=== PATIENT | male | born 1985 | race Caucasian/White ===

== ENCOUNTER 2018-03-19 08:45 | Inpatient (IN) | payer OTHER ==
[~2018-03-19] VITALS: Ht 172.7 cm; Wt 154.2 kg
--- NOTE | 2018-03-19 11:00 | RADIOLOGY REPORT ---
EXAMINATION: XR CHEST CLINICAL INFORMATION: Cough COMPARISON: None TECHNIQUE: 2 views of the chest were obtained. FINDINGS: Cardiac silhouette is within normal limits. Mild prominence of the pulmonary and bronchial markings may represent reactive small airway disease or superimposed bronchiolitis. No acute airspace disease. Bony thorax is intact. IMPRESSION: Reactive small airway disease or superimposed bronchiolitis. No evidence of pneumonia.
--- NOTE | 2018-03-19 11:14 | ED DYSPNEA/ASTHMA COMPLAINT ---
See Addendum History of Present Illness General Chief Complaint: General Adult Stated Complaint: SOB COUGH SINCE THURSDAY 02 SAT 93 Source: patient Exam Limitations: no limitations Vital Signs & Intake/Output Vital Signs & Intake/Output Vital Signs Date Time Temp Pulse Resp B/P B/P Pulse O2 O2 Flow FiO2 Mean Ox Delivery Rate 03/19 1455 97.6 77 24 108/60 91 Room Air 03/19 1316 93 03/19 1206 98.8 88 21 158/78 93 Room Air 03/19 1140 93 03/19 1130 93 Room Air Room Air 03/19 1125 93 03/19 0851 98.6 81 20 163/78 91 Room Air Allergies Coded Allergies: No Known Allergies (03/19/18) Reconcile Medications No Known Home Medications Triage Note: 32 YO MALE TO TRIAGE C/O COUGH AND DIFF BREATHING SINCE THURSDAY. RA SATS 91-93%. PT STATES COUGH IS NONPRODUCTIVE. AFEBRILE. Triage Nurses Notes Reviewed? yes Onset: Abrupt Duration: minute(s): (4), day(s):, getting worse, intermittent Timing: recent history HPI: 32-year-old male comes into the emergency room complaints of shortness of breath cough wheezing. Symptoms going on for the past 4 days getting progressively worse. He's had some upper story symptoms. Comes in for further evaluation. He has some dizziness lightheadedness and some chest tightness. (Jose Spencer) Past History Travel History Traveled to [place] past 21 day No Medical History Any Pertinent Medical History? 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 No (Jose Spencer) Review of Systems Review of Systems Constitutional: Reports: see HPI. EENTM: Reports: no symptoms. Respiratory: Reports: see HPI. Cardiovascular: Reports: see HPI. GI: Reports: no symptoms. Genitourinary: Reports: no symptoms. Musculoskeletal: Reports: no symptoms. Skin: Reports: no symptoms. Neurological/Psychological: Reports: no symptoms. Hematologic/Endocrine: Reports: no symptoms. Immunologic/Allergic: Reports: no symptoms. All Other Systems: Reviewed and Negative (Jose Spencer) Physical Exam Physical Exam General Appearance: well developed/nourished, alert, awake, mild distress Head: atraumatic Eyes: Bilateral: normal appearance. Ears, Nose, Throat: normal ENT inspection, hearing grossly normal Neck: normal inspection Respiratory: decreased breath sounds, wheezing Cardiovascular: regular rate/rhythm Extremities: normal inspection Neurologic/Psych: awake, alert, oriented x 3, normal gait Skin: intact, normal color Core Measures ACS in differential dx? No CVA/TIA Diagnosis No Sepsis Present: No Sepsis Focused Exam Completed? No (Jose Spencer) Progress Differential Diagnosis: asthma, bronchitis, musculoskeletal pain, pericarditis, pulmonary embolism, pneumonia Plan of Care: Orders Procedure Date/time Status TROPONIN LEVEL 03/19 1300 Complete COMPREHENSIVE METABOLIC PANEL 03/19 1300 Complete CBC WITHOUT DIFFERENTIAL 03/19 1300 Complete EKG 03/19 1300 Active Current Medications Sig/Raciel Start time Last Medication Dose Stop Time Status Admin Magnesium Sulfate 1 GM Q2H 03/19 1300 AC 03/19 (Mag Sulfate in D5) 03/19 1659 1420 Dextrose/Water 100 ML (D5W) Laboratory Tests 03/19/18 1325: Anion Gap 12, Estimated GFR > 60, BUN/Creatinine Ratio 14.3, Glucose 96, Calcium 9.2, Total Bilirubin 0.8, AST 28, ALT 46, Alkaline Phosphatase 79, Troponin I < 0.01, Total Protein 7.7, Albumin 4.5, Globulin 3.2, Albumin/Globulin Ratio 1.4, CBC w Diff NO MAN DIFF REQ, RBC 4.70, MCV 88.5, MCH 29.6, MCHC 33.5, RDW 13.1, MPV 8.2, Gran % 87.3 H, Lymphocytes % 7.0 L, Monocytes % 3.3, Eosinophils % 2.4, Basophils % 0, Absolute Granulocytes 10.8 H, Absolute Lymphocytes 0.9 L, Absolute Monocytes 0.4, Absolute Eosinophils 0.3, Absolute Basophils 0 Diagnostic Imaging: Viewed by Me: Radiology Read. Discussed w/RAD: Radiology Read. Radiology Impression: PATIENT: RAGHAV WOODRUFF PRESENT AGE: 32 PATIENT ACCOUNT NO: [id number] : 83 LOCATION: [facility] ORDERING PHYSICIAN: Jose WEBSTER SERVICE DATE: 03/19/18 EXAM TYPE: RAD - XRY-CHEST XRAY, TWO VIEWS EXAMINATION: XR CHEST CLINICAL INFORMATION: Cough COMPARISON: None TECHNIQUE: 2 views of the chest were obtained. FINDINGS: Cardiac silhouette is within normal limits. Mild prominence of the pulmonary and bronchial markings may represent reactive small airway disease or superimposed bronchiolitis. No acute airspace disease. Bony thorax is intact. IMPRESSION: Reactive small airway disease or superimposed bronchiolitis. No evidence of pneumonia. DICTATED BY: Mae Mayorga MD DATE/TIME DICTATED:03/19/181055 SECTION WEAVER:ARIANA DATE/TIME TRANSCRIBED:03/19/181055 CONFIDENTIAL, DO NOT COPY WITHOUT APPROPRIATE AUTHORIZATION. <Electronically signed in Other Vendor System> SIGNED BY: Mae Mayorga MD 03/19/18 1100 Initial ED EKG: normal sinus rhythm, rate (66) (Jose Spencer) Departure Departure Disposition: STILL A PATIENT Condition: Stable Clinical Impression Primary Impression: Asthma exacerbation Secondary Impressions: Hypoxia Referrals: Cb LUU,Khris Mason (PCP/Family) Departure Forms: Customer Survey General Discharge Information Prescriptions: Current Visit Scripts No Known Home Medications Admission Note Spoke With: Mechelle Avila MD Documentation of Exam: Documentation of any treatments & extenuating circumstances including Concerns Regarding Discharge (functional status, medication knowledge or non-compliance, living conditions, etc.) that warrant an admission rather than observation: Patient has received continuous nebulizers, IV magnesium, IV steroids. He is still tachypneic and short of breath and hypoxic on room air. Will require supplemental oxygen. Pulmonary consultation. Pulmonary function test. Medically not safe for discharge at this time. (Jose Spencer) PA/FIBERGLASS LUGGAGE MOLDER Co-Sign Statement Statement: ED Attending supervision documentation- x I saw and evaluated the patient. I have also reviewed all the pertinent lab results and diagnostic results. I agree with the findings and the plan of care as documented in the PA's/FIBERGLASS LUGGAGE MOLDER's documentation. SSCP prior to court date with ischemic EKG changes. [] I have reviewed the ED Record and agree with the PA's/FIBERGLASS LUGGAGE MOLDER's documentation. [] Additions or exceptions (if any) to the PAs/FIBERGLASS LUGGAGE MOLDER's note and plan are summarized below: [] (Kadeem LUU,Mateo) Critical Care Note Critical Care Note Critical Care Time: 30-74 min (60) (Kofi WEBSTER,Jose)
[2018-03-19 13:36] LABS: ABSOLUTE BASOPHIL COUNT 0 /CUMM (0.0-0.2); ABSOLUTE EOSINOPHIL COUNT 0.3 /CUMM (0.0-0.7); ABSOLUTE GRANULOCYTE CT 10.8 /CUMM (1.4-6.5); ABSOLUTE LYMPH COUNT 0.9 /CUMM (1.2-3.4); ABSOLUTE MONOCYTE COUNT 0.4 /CUMM (0.10-0.60); BASOPHIL % 0 % (0.0-2.0); EOSINOPHIL % 2.4 % (0-5); HEMATOCRIT 41.6 % (42-52); MEAN CORPUSCULAR HGB 29.6 PG (27.0-31.0); MEAN CORPUSCULAR HGB CONC 33.5 G/DL (33.0-37.0); MEAN CORPUSCULAR VOLUME 88.5 FL (80.0-94.0); MEAN PLATELET VOLUME 8.2 FL (7.4-10.4); PLATELET COUNT 210 /CUMM (130-400); RBC DISTRIBUTION WIDTH 13.1 % (11.5-14.5); WHITE BLOOD CELL COUNT 12.4 /CUMM (4.8-10.8)
[2018-03-19 13:47] LABS: GRANULOCYTE % 87.3 % (42.2-75.2)
--- NOTE | 2018-03-19 16:53 | History & Physical ---
LuisRodas 03/19/18 3545: General Information and HPI MD Statement: I have seen and personally examined RAGHAV WOODRUFF and documented this H&P. The patient is a 32 year old M who presented with a patient stated chief complaint of shortness of breath, dry cough, chest pain and lightheadedness since this morning. []. Source of Information: patient, EMS Exam Limitations: no limitations History of Present Illness: 32 YO obese M smoker (half a pack/day for 20 yrs) with past medical history of bronchitis in childhood came to ED with chief complaint of shortness of breath, lightheadedness and wheezing since this morning and stuffiness of the nose with dry cough since Thursday. Patient reported that he was in his usual state of health until Thursday when he suddenly noticed having dry cough that stuffiness of nose. Patient reported that dry cough comes in bouts and cough episodes associated with chest pain. According to the patient he also started to notice having shortness of breath and is progressively worsening. This morning he woke up with shortness of breath and having lightheadedness and excessive bouts of cough and wheezing. Patient denied any palpitation, orthopnea, exertional chest pain, nausea, vomiting, sick contacts, allergies to cats or dogs, allergies to dust, headache, blurry vision, abdominal pain and dysuria. Patient reported that he never been diagnosed with asthma or COPD and he is not taking any medication except dxbr-nos-jxaxzrv ibuprofen or flu medication. Patient didn't get his flu shot this year. He also reported that he is not seeing his primary care physician since last year. Patient reported that he has 2 cats at home but he is not allergic. Patient reported that his mother has asthma and he had bronchitis in the childhood. ED course: Vitals: Temperature 98.6, pulse 81, respirations 20, blood pressure 163/78, oxygen saturation 91% at room air Labs: WBC count 12.4, hemoglobin 13.9, hematocrit 41.6, platelet count 210, sodium 140, potassium 4.5, BUN 10, creatinine 0.7, BUN/creatinine ratio 14.3, glucose 96, calcium 9.2, AST 28, ALT 46, troponin less than 0.01. Patient received 1 g micturition sulfate in ED and he was started on 2 L of oxygen. 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 EENTM: Reports: see HPI. Cardiovascular: Reports: chest pain. Denies: orthopena, palpitations. Respiratory: Reports: cough, short of breath, wheezing. Denies: sputum production. GI: Denies: abdominal pain, constipation, diarrhea, nausea, vomiting. Genitourinary: Reports: no symptoms. Musculoskeletal: Reports: no symptoms. Neurological/Psychological: Denies: confusion, headache. Exam & Diagnostic Data Last 24 Hrs of Vital Signs/I&O Vital Signs Date Time Temp Pulse Resp B/P B/P Pulse O2 O2 Flow FiO2 Mean Ox Delivery Rate 03/19 1455 97.6 77 24 108/60 91 Room Air 03/19 1316 93 03/19 1206 98.8 88 21 158/78 93 Room Air 03/19 1140 93 03/19 1130 93 Room Air Room Air 03/19 1125 93 03/19 0851 98.6 81 20 163/78 91 Room Air Intake & Output 03/19 1600 03/19 0800 03/19 0000 Intake Total 260 Output Total Balance 260 Intake, IV 200 Intake, Oral 60 Patient 340 lb Weight Weight Reported by Patient Measurement Method Physical Exam General Appearance Alert, Oriented X3, Cooperative Skin No Rashes Skin Temp/Moisture Exam: Warm/Dry Sepsis Skin Exam (color): Normal for Ethnicity HEENT Atraumatic, PERRLA, EOMI Neck Supple Cardiovascular Normal S1, Normal S2 Lungs Decreased breath sounds b/l Abdomen Soft, No Tenderness Neurological Normal Speech, Strength at 5/5 X4 Ext, Normal Tone, Sensation Intact Extremities No Edema Last 24 Hrs of Labs/Arthur: Laboratory Tests 03/19/18 1745: Sodium Pending, Potassium Pending, Chloride Pending, Carbon Dioxide Pending, Anion Gap Pending, BUN Pending, Creatinine Pending, BUN/Creatinine Ratio Pending 03/19/18 1325: Anion Gap 12, Estimated GFR > 60, BUN/Creatinine Ratio 14.3, Glucose 96, Calcium 9.2, Total Bilirubin 0.8, AST 28, ALT 46, Alkaline Phosphatase 79, Troponin I < 0.01, Total Protein 7.7, Albumin 4.5, Globulin 3.2, Albumin/Globulin Ratio 1.4, CBC w Diff NO MAN DIFF REQ, RBC 4.70, MCV 88.5, MCH 29.6, MCHC 33.5, RDW 13.1, MPV 8.2, Gran % 87.3 H, Lymphocytes % 7.0 L, Monocytes % 3.3, Eosinophils % 2.4, Basophils % 0, Absolute Granulocytes 10.8 H, Absolute Lymphocytes 0.9 L, Absolute Monocytes 0.4, Absolute Eosinophils 0.3, Absolute Basophils 0 Microbiology 03/19 1745 BLOOD: Blood Culture - RECD 03/19 1744 NASOPHARYN: Influenza Virus A & B Rapid Smear - ORD 03/19 1723 LOWER RESP: Respiratory Culture - ORD 03/19 1723 LOWER RESP: Gram Stain - ORD 03/19 1723 BLOOD: Blood Culture - ORD Assessment/Plan Assessment: 32 YO obese M smoker (half a pack/day for 20 yrs) with past medical history of bronchitis in childhood came to ED with chief complaint of shortness of breath, lightheadedness and wheezing since this morning and stuffiness of the nose with dry cough since Thursday. We'll admit the patient on general medicine floor to treat for following problems: Acute hypoxic respiratory failure due to asthma exacerbation: -Continue supplemental oxygen to maintain saturation above 92%. -TRC nebulization as needed -Peak expiratory flow rate after every 2 hours -Continue with Solu-Medrol 40 mg IV every 8 hourly -Continue azithromycin 250 mg daily -We will check his ABGs if his shortness of breath didn't improve or patient started to have lightheadedness. DVT prophylaxis: Mechanical and Lovenox CODE STATUS; Full code As Ranked By This Provider Problem List: 1. Hypoxia 2. Asthma exacerbation Core Measures/Misc (08/09) Acute Coronary Syndrome ACS Diagnosis: No Congestive Heart Failure Congestive Heart Failure Diagnosis No Cerebrovascular Accident CVA/TIA Diagnosis: No VTE (View Protocol) VTE Risk Factors Smoker No Mechanical VTE Prophylaxis d/t N/A MechProphylax Ordered No VTE Pharm Prophylaxis d/t NA PharmProphylax ordered Sepsis (View protocol) Sepsis Present: No Kamal,Mary Jo 03/19/18 1815: Resident Review Statement Resident Statement: examined this patient, discussed with employee communications intern, agreed with employee communications intern Other Findings: Patient is a 33-year-old obese gentleman with no significant past medical history presented to the ER with chief complaints of worsening shortness of breath, cough and dizziness. Patient mentioned that his symptoms started with nasal congestion and dry cough last week, tried abeu-kel-aquapwh decongestants without improvement. He reported spells of cough with some chest tightness. Today his symptoms got worse couldn't able to breathe was feeling dizzy as well,and came to the ER for further assessment. Patient denied any nausea vomiting or abdominal discomfort denies any urinary complaints .Patient denied any recent infections/sick contacts/recent travels. He does not take any medications on a daily basis. Never been diagnosed with any lung problems in the past. Patient is a current every day smoker about half pack a day for more than 20 years now and occasional drinker. Family history is positive for asthma in the mother. In the ER patient was given short-acting inhalers and one-time dose of prednisone and was put on 2 L of option for nasal cannula. General Appearance: Alert, mild distress. Skin: Grossly normal HEENT: PEERLA Neck: Supple, No JVD Cardiovascular: Regular Rate, Normal S1, Normal S2, No Murmurs Lungs: Decreased breath sounds in all lung siegel with some wheeze Abdomen: Normal Bowel Sounds, Soft, No Tenderness Neurological: Normal Speech, Strength at 5/5 X4 Ext, Cranial Nerves 3-12 NL, Reflexes 2+ Extremities: No Clubbing, No Cyanosis, No Edema Vascular: Normal Pulses . ED course Vitals were stable, saturating around 92% on 2 L. Pertinent labs mild leukocytosis without any bandemia H&H: normal bep Chest x-ray : Reactive small airway disease or superimposed bronchiolitis. No evidence of pneumonia. Assessment This is a 32-year-old obese gentleman with no significant past medical history presented for the evaluation of worsening shortness of breath, dry cough and dizziness. Chest x-ray showed reactive small airway disease. Patient received albuterol and prednisone in the ER and was put on oxygen, he is still very tight on examination with some wheeze. Though patient doesn't have a documented history of asthma or COPD, on the basis of his symptoms and clinical evaluation we will treat him for possible COPD/asthma exacerbation. Plan Acute hypoxic respiratory failure due to Possible COPD/asthma exacerbation * [facility] Will give additional IV Solu-Medrol 60 mg, start him on 40 mg 3 times a day from tomorrow. * TRC nebs as needed. * Continue oxygen to keep saturations above 92%. * If at any point patient appears more drowsy and lethargic we'll obtain ABG, check signs of carbon dioxide retention. If ABG is evident for hypercarbia, will put BiPAP ,will consider transferring the patient to ICU for close monitoring. pain pathway with Tylenol 5. DVT prophylaxis subcutaneous Lovenox 6. Patient is full code Mechelle Avila MD 03/19/18 1841: Attending MD Review Statement Attending Statement Attending MD Statement: examined this patient, discuss w/resident/PA/TRENCH PIPE LAYER, agreed w/resident/PA/TRENCH PIPE LAYER, reviewed EMR data (avail) Attending Assessment/Plan: 32M PMH asthma, active smoker, here with asthma exacerbation. SOB at rest and worse with exertion, lightheaded with exertion, poor air entry and wheezing on exam. Afebrile, WBC 12, CXR shows reactive airway disease. No improvement after several nebulizer treatments in ER. Plan: Admit to gm, Solumedrol, nebulizers, daily peak flow, Azithromycin.
[2018-03-19 19:23] VITALS: BP 130/80
--- NOTE | 2018-03-20 06:14 | PN- Housestaff ---
See Addendum Subjective Follow-up For: Acute hypoxic respiratory failure due to asthma exacerbation Subjective: No overnight events. Patient remained afebrile lipase and examined this morning. He is using 2 L of oxygen and maintaining saturation 92%. Patient denied any chest pain, palpitation, nausea, vomiting, chills, fever and dysuria. Patient reported that he is using oxygen intermittently because it's causing dryness in his throat. Review of Systems Constitutional: Denies: chills, fever. EENTM: Reports: no symptoms. Cardiovascular: Denies: chest pain, palpitations. Respiratory: Denies: cough, short of breath, sputum production. Gastrointestinal: Denies: abdominal pain, constipation, diarrhea, nausea. Genitourinary: Reports: no symptoms. Neurological/Psychological: Reports: no symptoms. Objective Last 24 Hrs of Vital Signs/I&O Vital Signs Date Time Temp Pulse Resp B/P B/P Pulse O2 O2 Flow FiO2 Mean Ox Delivery Rate 03/20 0658 97.3 68 20 136/76 92 Room Air 03/20 0000 91 Nasal 2.0L Cannula 03/19 2121 Nasal 2.0L Cannula 03/19 1923 98.2 90 21 130/80 95 Nasal Cannula 03/19 1918 93 Nasal 2.0L Cannula 03/19 1725 98.4 92 24 136/67 94 Nasal 2.0L Cannula 03/19 1455 97.6 77 24 108/60 91 Room Air 03/19 1316 93 03/19 1206 98.8 88 21 158/78 93 Room Air 03/19 1140 93 03/19 1130 93 Room Air Room Air 03/19 1125 93 03/19 0851 98.6 81 20 163/78 91 Room Air Intake & Output 03/20 0800 03/20 0000 03/19 1600 Intake Total 480 480 260 Output Total 300 Balance 180 480 260 Intake, IV 200 Intake, Oral 480 480 60 Output, Urine 300 Patient 340 lb 340 lb Weight Weight Reported by Patient Measurement Method Physical Exam General Appearance: Alert, Oriented X3, Cooperative Skin: No Rashes Skin Temp/Moisture Exam: Warm/Dry Sepsis Skin Exam (color): Normal for Ethnicity HEENT: Atraumatic, PERRLA, EOMI Neck: Supple Cardiovascular: Normal S1, Normal S2 Lungs: b/l decreased breath sounds Abdomen: Soft, No Tenderness Neurological: Normal Speech, Strength at 5/5 X4 Ext, Normal Tone, Sensation Intact Extremities: No Edema Assessment/Plan Assessment: 32 YO obese M smoker (half a pack/day for 20 yrs) with past medical history of bronchitis in childhood came to ED with chief complaint of shortness of breath, lightheadedness and wheezing since this morning and stuffiness of the nose with dry cough since Thursday. We are following the patient for following problems: Acute hypoxic respiratory failure due to asthma exacerbation: -Continue supplemental oxygen to maintain saturation above 92%. -TRC nebulization as needed -Peak expiratory flow rate every day. -Continue with Solu-Medrol 40 mg IV every 8 hourly -Continue azithromycin 250 mg daily. Day 2 DVT prophylaxis: Mechanical and Lovenox CODE STATUS: Full code Problem List: 1. Asthma exacerbation 2. Hypoxia Pain Ratin Pain Location: none Pain Goal: Remain pain free Pain Plan: pain pathway Tomorrow's Labs & Rationales: bep/mag
[2018-03-20 06:58] VITALS: BP 136/76
[2018-03-20 14:23] VITALS: BP 110/80
[2018-03-20 22:29] VITALS: BP 140/90
[2018-03-21 06:29] VITALS: BP 128/74
--- NOTE | 2018-03-21 09:24 | PN- Housestaff ---
Akosua Kim MD,Ami 03/21/18 0923: Subjective Follow-up For: Acute hypoxic respiratory failure due to asthma exacerbation Subjective: Patient visited today, was sitting in bed comfortably in no acute distress, was alert and oriented. No fever or chills, improved shortness of breathing, no chest pain, no other events. Patient stable to be discharged. to complete azithromycing and taper prednisolone. Review of Systems Constitutional: Reports: see HPI. Objective Last 24 Hrs of Vital Signs/I&O Vital Signs Date Time Temp Pulse Resp B/P B/P Pulse O2 O2 Flow FiO2 Mean Ox Delivery Rate 03/21 08 98 Room Air 03/21 0800 95 Room Air Room Air 03/21 0629 97.4 70 20 128/74 95 Room Air 03/20 2229 97.7 72 21 140/90 98 Room Air 03/20 2104 98 Room Air Intake & Output 03/21 1600 03/21 0800 03/21 0000 Intake Total 500 620 620 Output Total Balance 500 620 620 Intake, IV 20 20 Intake, Oral 500 600 600 Physical Exam General Appearance: Alert, Oriented X3, Cooperative, No Acute Distress Skin: No Significant Lesion Skin Temp/Moisture Exam: Warm/Dry Sepsis Skin Exam (color): Normal for Ethnicity HEENT: Atraumatic, EOMI Cardiovascular: Normal S1, Normal S2 Lungs: Clear to Auscultation, Normal Air Movement, improved wheezing Abdomen: Soft, No Tenderness, obese Current Medications: Current Medications Sig/Raciel Start time Last Medication Dose Route Stop Time Status Admin Acetaminophen 650 MG Q6P PRN 03/19 1730 DCD PO Albuterol Sulfate 3 ML TID 03/20 09 DCD 03/21 INH 1327 Azithromycin 250 MG DAILY 03/19 1730 DCD 03/21 PO 0836 Enoxaparin Sodium 40 MG DAILY 03/20 09 DCD 03/21 SC 0836 Methylprednisolone 40 MG Q8 03/20 0600 DCD 03/21 IV 1335 Last 24 Hrs of Lab/Arthur Results Last 24 Hrs of Labs/Mics: Laboratory Tests 03/21/18 0740: Anion Gap 12, Estimated GFR > 60, BUN/Creatinine Ratio 26.7 H Assessment/Plan Assessment: 32 YO obese M smoker (half a pack/day for 20 yrs) with past medical history of bronchitis in childhood came to ED with chief complaint of shortness of breath, lightheadedness and wheezing since this morning and stuffiness of the nose with dry cough since Thursday. We are following the patient for following problems: Acute hypoxic respiratory failure due to asthma exacerbation: -patient stable to be discharged -TRC nebulization as needed -Follow with pulm -PO prednisolon -Complete coarse of azithromycin - DC patient DVT prophylaxis: Mechanical and Lovenox CODE STATUS: Full code Problem List: 1. Asthma exacerbation 2. Hypoxia Pain Ratin Pain Location: continue current plan Pain Goal: Pain 4 or less Pain Plan: continue current plan Tomorrow's Labs & Rationales: none, dc tomorrow [facility] LUU,Poonam 03/21/18 0924: Attending MD Review Statement Attending Statement Attending MD Statement: examined this patient, discuss w/resident/PA/ORNAMENTAL BRICK INSTALLER, agreed w/resident/PA/ORNAMENTAL BRICK INSTALLER, reviewed EMR data (avail), discussed with nursing, discussed with case mgmt, amended to note Attending Assessment/Plan: Patient seen and examined. Resting comfortably not in any acute distress. No issues overnight. No new complaints this morning. he reports feeling comfortable. Denies any shortness of breath at rest or with exertion. He is not requiring oxygen supplementation. On examination he is not in any respiratory distress. He has adequate entry bilaterally with no added sounds. Recommendations: -Patient is eager to be discharged today. He is medically stable to be discharged home. -Transition patient to prednisone 40 mg orally twice daily for 2 days then 20 mg orally daily for 2 days and 10 mg orally daily for 2 days then stop. -Provide prescriptions in addition for albuterol and Atrovent to use 4 times daily at home until seen by the pulmonology service. -Provide prescription for azithromycin to complete 5 days of treatment. -Provide referral to outpatient pulmonary service for pulmonary function testing and sleep study as indicated.
[2018-03-21] MEDS ORDERED: VENTOLIN HFA18 GM INH ×2 (12:12→18:15)
[2018-03-21] MEDS ORDERED: ATROVENT HFA12.9 GM INH ×2 (12:12→18:15)
--- NOTE | 2018-03-21 12:13 | Patient Discharge Instructions ---
Discharge Instructions General Discharge Information You were seen/treated for: ASTHMA EXACERBATION Special Instructions: -Please follow-up with your primary care provider within 7 days after discharge. -Please follow-up with your search lead 7 days after discharge -We have made changes to your home medications, please read the instructions carefully. -Please come back to the hospital if your symptoms got worse. Diet Continue normal diet: Yes Activity Full Activity/No Limits: Yes ( TOLERATED) Acute Coronary Syndrome Inclusion Criteria At DC or during hospital stay patient has or had the following: ACS DIAGNOSIS No Discharge Core Measures Meds if any: Prescribed or Continued at Discharge Meds if any: NOT Prescribed or Continued at Discharge Congestive Heart Failure Inclusion Criteria At DC or during hospital stay patient has or had the following: CHF DIAGNOSIS No Discharge Core Measures Meds if any: Prescribed or Continued at Discharge Meds if any: NOT Prescribed or Continued at Discharge Cerebrovascular accident Inclusion Criteria At DC or during hospital stay patient has or had the following: CVA/TIA Diagnosis No Discharge Core Measures Meds if any: Prescribed or Continued at Discharge Meds if any: NOT Prescribed or Continued at Discharge Venous thromboembolism Inclusion Criteria VTE Diagnosis No VTE Type NONE VTE Confirmed by (Test) NONE Discharge Core Measures - Per Current guidelines, there needs to be overlap - treatment for the first 5 days of Warfarin therapy. - If discharged on Warfarin prior to 5 days of - overlap therapy, the patient will need to be - assessed for post discharge needs including - *Post discharge parental anticoagulation - *Warfarin and/or parental anticoagulation education - *Follow up date to check INR post discharge At least 5 days overlap therapy as Inpatient No Meds if any: Prescribed or Continued at Discharge Note: Overlap Therapy is Warfarin and Anticoagulant Meds if any: NOT Prescribed or Continued at Discharge
[2018-03-21] MEDS ORDERED: AZITHROMYCIN250 M1 PO ×2 (12:20→18:15)
[2018-03-21] MEDS ORDERED: PREDNISONE10 M2 PO ×2 (12:20→18:15)
--- NOTE | 2018-04-08 05:52 | Discharge Summary ---
Visit Information Visit Dates Admission Date: 03/19/18 Discharge Date: 03/21/18 Hospital Course Course Attending Physician: Poonam Garg MD Primary Care Physician: Cb LUU,Khris Mason [facility] Course: Patient is 32-year-old male, smoker with PMH of bronchitis since childhood came to ED with chief complaint of shortness of breathing and wheezing. At the time of admission: Vitals: Temperature 98.6, pulse 81, respirations 20, blood pressure 163/78, oxygen saturation 91% at room air Labs: WBC count 12.4, hemoglobin 13.9, hematocrit 41.6, platelet count 210, sodium 140, potassium 4.5, BUN 10, creatinine 0.7, BUN/creatinine ratio 14.3, glucose 96, calcium 9.2, AST 28, ALT 46, troponin less than 0.01. Patient received 1 g micturition sulfate in ED and he was started on 2 L of oxygen. Patient was admitted to general medicine floor for management of following conditions: Acute hypoxic respiratory failure due to asthma exacerbation: O2 supplements were provided, IV solumedrol, TRC and Nebs were administred. Patient also recieved azythromycin. Patient significantly improved over the next day. Patient was able to be discharged to complete by mouth azithromycin and taper prednisone. Patient was discharged with recommendations below. Allergies: Coded Allergies: No Known Allergies (03/19/18) Disposition Summary Disposition Principal Diagnosis: Acute hypoxic respiratory failure, asthma exacerbation Additional Diagnosis: None Discharge Disposition: home or self care Discharge Instructions General Discharge Information Code Status: Full Code Patient's Diet: Regular diet Patient's Activity: As tolerated Follow-Up Instructions/Appts: -Please follow-up with your primary care provider within 7 days after discharge. -Please follow-up with your investment banker 7 days after discharge -We have made changes to your home medications, please read the instructions carefully. -Please come back to the hospital if your symptoms got worse. Medications at Discharge Discharge Medications: Start taking the following new medications: Azithromycin (Azithromycin) 250 MG TABLET 250 Milligram ORAL DAILY Qty = 2 No Refills Instructions: START FROM 03/22. Comments: Last Taken:03/21/18 Time:8:36A.M Ipratropium [place] (Atrovent Hfa) 17 MCG/ACTUATION HFA.AER.AD 2 Puff Inhale through mouth TWICE DAILY Qty = 1 No Refills Instructions: . Comments: NOT GIVEN THIS ADMISSION Albuterol Sulfate (Ventolin Hfa) 90 MCG HFA.AER.AD 2 Puff Inhale through mouth EVERY 4-6 HOURS NEEDED as needed for ASTHMA Qty = 1 No Refills Instructions: . Comments: NOT GIVEN THIS ADMISSION Prednisone (Prednisone) 10 MG TABLET 0 ORAL SEE INSTRUCTIONS Qty = 30 No Refills Instructions: START FROM 03/22 4 TABS 2 TIMES A DAY FOR 2 DAYS 2 TABS DAILY FOR 2 DAYS 1 TAB DAILY FOR 2 DAYS. Comments: Last Taken:NOT STARTED IN HOSPITAL Time:START FROM 03/22 4 TABS 2 TIMES A DAY FOR 2 DAYS 2 TABS DAILY FOR 2 DAYS 1 TAB DAILY FOR 2 DAYS Copies To: Cb LUU,Khris Mason Attending MD Review Statement Documenting Attending: Poonam Garg MD Other Findings: Dischargee in stable condition
== END 2018-03-21 14:27 | DRG 141 ==
LOC: ERH 08:45 → 2NA 15:59 → ERHI 15:59 → ENRESERV 17:45 → ENTRNSPT 18:49 → 2NA 19:00 → EDTRNSPTSTS 19:07 → CMPTRNSPT 19:17 → ENPENDDIS 03-21 13:06 → 2NA 03-21 14:27
PROVIDERS: Physician Assistant Medical
DX: J45.901 Unspecified asthma with (acute) exacerbation (principal); E66.01 Morbid (severe) obesity due to excess calories; Z68.43 Body mass index [BMI] 50.0-59.9, adult; R09.02 Hypoxemia; F17.200 Nicotine dependence, unspecified, uncomplicated; G47.33 Obstructive sleep apnea (adult) (pediatric)
CPT/HCPCS: 2NASP; 36592; 71046; 82436; 87040; 87070; 87804; 87804-59; 93005; 93010; 94644; 96365; 99291; J0456; J1650; J2920; J2930; Q2036

== ENCOUNTER 2018-07-24 22:14 | Inpatient (IN) | payer OTHER ==
[~2018-07-24] VITALS: Ht 172.7 cm; Wt 154.2 kg
[~2018-07-24 22:14] MED LIST: ATROVENT HFA12.9 GM INH; AZITHROMYCIN250 M1 PO; PREDNISONE10 M2 PO; VENTOLIN HFA18 GM INH
[2018-07-24 23:03] LABS: ABSOLUTE BASOPHIL COUNT 0 /CUMM (0.0-0.2); ABSOLUTE EOSINOPHIL COUNT 0.2 /CUMM (0.0-0.7); ABSOLUTE GRANULOCYTE CT 7.6 /CUMM (1.4-6.5); ABSOLUTE LYMPH COUNT 1.2 /CUMM (1.2-3.4); ABSOLUTE MONOCYTE COUNT 0.7 /CUMM (0.10-0.60); BASOPHIL % 0.1 % (0.0-2.0); EOSINOPHIL % 1.6 % (0-5); GRANULOCYTE % 78.7 % (42.2-75.2); HEMATOCRIT 41.5 % (42-52); MEAN CORPUSCULAR HGB CONC 34.2 G/DL (33.0-37.0); MEAN CORPUSCULAR VOLUME 87.7 FL (80.0-94.0); MEAN PLATELET VOLUME 8.7 FL (7.4-10.4); PLATELET COUNT 214 /CUMM (130-400); RBC DISTRIBUTION WIDTH 13.1 % (11.5-14.5); RED BLOOD CELL CT 4.73 /CUMM (4.70-6.10); WHITE BLOOD CELL COUNT 9.7 /CUMM (4.8-10.8)
--- NOTE | 2018-07-24 23:45 | ED UPPER/LOWER EXTREMITY COMPL ---
History of Present Illness General Chief Complaint: Lower Extremity Problems Stated Complaint: R LEG SWELLING Source: patient Exam Limitations: no limitations Vital Signs & Intake/Output Vital Signs & Intake/Output Vital Signs Date Time Temp Pulse Resp B/P B/P Pulse O2 O2 Flow FiO2 Mean Ox Delivery Rate 07/26 0729 97.8 68 18 134/78 97 07/25 2135 98.4 80 18 148/81 94 Room Air 07/25 1436 98.2 70 16 129/66 98 Room Air ED Intake and Output 07/26 0000 07/25 1200 Intake Total 1160 1320 Output Total Balance 1160 1320 Intake, IV 120 1200 Intake, Oral 1040 120 Patient 340 lb Weight Weight Reported by Patient Measurement Method Allergies Uncoded Allergies: RITALIN(GENERIC) (HIVES 07/24/18) Triage Note: PER PT NOTICED RLE REDNESS ON THURSDAY,THEN SWELLING AND PAIN AND DISCOLORATION HAS PROGRESSED PER PT DENIES INJURY OR BITE Triage Nurses Notes Reviewed? yes HPI: Patient presents for evaluation of right leg swelling that began (48 hours ago). Patient states he presents to seem him because his leg is turning "purple" with swelling and warmth. Onset of symptoms was gradual and symptoms have been constant and continue here in the emergency department. He denies prior episodes, known injury, insect bites or fever. Patient states however he has felt like he's had "the flu". Thank you states he went home from work early on Thursday because "he looked awfull". He was able to work today but again felt rather poorly. Past History Travel History Traveled to [place] past 21 day No Medical History Any Pertinent Medical History? see below for history Neurological: NONE EENT: NONE Cardiovascular: NONE Respiratory: COPD? 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 No Review of Systems Review of Systems Constitutional: Reports: no symptoms. EENTM: Reports: no symptoms. Respiratory: Reports: no symptoms. Cardiovascular: Reports: no symptoms. Gastrointestinal/Abdominal: Reports: no symptoms. Genitourinary: Reports: no symptoms. Musculoskeletal: Reports: no symptoms. Skin: Reports: see HPI. Neurological/Psychological: Reports: no symptoms. Hematologic/Endocrine: Reports: no symptoms. Immunological: Reports: no symptoms. All Other Systems: Reviewed and Negative Physical Exam Physical Exam General Appearance: see below Comments: Gen.: Well-nourished, well-developed, no acute respiratory distress. Mild distress secondary to fever. Head: Normocephalic, atraumatic. Eyes: Normal inspection bilaterally Ears: Normal inspection bilaterally Nose: Normal inspection Throat/mouth : Moist mucosa Neck: Supple, full range of motion, no goiter Heart: Regular rate and rhythm Lungs: Quiet respirations Back: Normal range of motion Extremities: Right leg: Diffuse soft tissue swelling and erythema with warmth, violaceous discoloration of the mid leg that is more or less circumferential. Neurologic: Cranial nerves grossly intact, speech is clear Skin: warm and dry Psychiatric: Calm, cooperative, no apparent delusions or hallucinations Progress Differential Diagnosis: cellulitis, contusion, DVT, gout, sprain Plan of Care: Current Medications Sig/Raciel Start time Last Medication Dose Stop Time Status Admin Enoxaparin Sodium 40 MG DAILY 07/25 0900 AC 07/26 (Lovenox) 0801 Ampicillin Sodium/ 3,000 MG Q6 07/25 0600 AC 07/26 Sulbactam Sodium 0524 (Unasyn) Sodium Chloride 100 ML (Normal Saline 0.9%) Acetaminophen 650 MG Q6P PRN 07/25 0130 AC 07/25 (Tylenol) 1717 Ibuprofen 600 MG Q6P PRN 07/25 0130 AC 07/25 (Motrin) 2314 Laboratory Tests 07/26/18 0630: Anion Gap 8, Estimated GFR > 60, BUN/Creatinine Ratio 12.9, CBC w Diff NO MAN DIFF REQ, RBC 4.45 L, MCV 89.9, MCH 29.8, MCHC 33.2, RDW 13.1, MPV 9.1, Gran % 59.6, Lymphocytes % 25.5, Monocytes % 8.6, Eosinophils % 6.0 H, Basophils % 0.3 , Absolute Granulocytes 4.0, Absolute Lymphocytes 1.7, Absolute Monocytes 0.6, Absolute Eosinophils 0.4, Absolute Basophils 0 Comments: Given the skin discoloration I am concerned about MRSA. Departure Departure Disposition: STILL A PATIENT Condition: Stable Clinical Impression Primary Impression: Cellulitis of right lower extremity Referrals: Cb LUU,Khris Mason (PCP/Family) Departure Forms: Customer Survey General Discharge Information Admission Note Spoke With: Poonam Garg MD Documentation of Exam: Documentation of any treatments & extenuating circumstances including Concerns Regarding Discharge (functional status, medication knowledge or non-compliance, living conditions, etc.) that warrant an admission rather than observation: Patient's clinical presentation is consistent with right leg cellulitis. Patient has also been suffering flulike symptoms given his infection. This has debilitated him to the point where he has had difficulty working and managing ADLs. I do not feel he is a good candidate for outpatient management given this I would likely return in worse clinical condition if outpatient management were attempted. I feel he requires hospitalization for an aggressive management with IV antibiotics and close clinical monitoring to prevent secondary sepsis. Although his clinical presentation is more consistent with cellulitis, he has an elevated d-dimer that should be monitored for improvement. If not, a coincident DVT should be considered add Doppler performed to rule this possibility out. Physical therapy consultation should be considered to assess the patient's functional capacity possible need for short-term rehabilitation. I feel this patient will require a multiple day hospitalization.
--- NOTE | 2018-07-25 01:10 | History & Physical ---
Nico LomaxGuido 07/25/18 0109: General Information and HPI MD Statement: I have seen and personally examined RAGHAV WOODRUFF and documented this H&P. The patient is a 32 year old M who presented with a patient stated chief complaint of [R LE Swelling]. Source of Information: patient Exam Limitations: no limitations History of Present Illness: Mr. Woodruff is a 32 y/o M with no significant PMH who comes to the ED c/o R leg swelling and pain. Patient states the symptoms started as swelling last . A noted color change was noted on the R lower charles, from white->red-> purple. He started feeling localized pain in the area with increasing swelling and warmth. He notes subjective fever and chills of same duration alongisde N/V of nonbloody vomitus once. He has also felt lightheaded and dizzy with retroorbital pain. He denies any recent URI, LOC, trauma, cuts or bruises to the area, prior similar episodes, sick contacts, animal/tick bites, recent travel. He does note loose bowel movements since the symptoms started alongside joint pain predominantly in the knees. Patient is an everyday smoker of 1/2 PPD for 15-20y, occasional alcohol drinker. Denies drug use. Allergies/Medications Allergies: Uncoded Allergies: RITALIN(GENERIC) (HIVES 07/24/18) Past History Travel History Traveled to [place] past 21 day No Medical History Neurological: NONE EENT: NONE Cardiovascular: NONE Respiratory: COPD? 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 Home Services at Home: None Primary Language: Bhutanese Smoking Status: Current Everyday Smoker ETOH Use: occasional use Illicit Drug Use: denies illicit drug use Functional Ability ADLs Independent: dressing, eating, toileting, bathing. 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 EENTM: Reports: no symptoms, eye pain. Denies: blurred vision, double vision, eye drainage, ear discharge, ear pain, nasal congestion, throat pain, throat swelling. Cardiovascular: Reports: peripheral edema. Denies: chest pain, edema, orthopena. Respiratory: Reports: no symptoms. Denies: cough, short of breath, sputum production. GI: Reports: diarrhea, nausea, vomiting. Denies: abdominal pain, bloating, constipation, changes in stool. Genitourinary: Reports: no symptoms. Denies: dysuria, hematuria, pain. Musculoskeletal: Reports: joint pain. Skin: Reports: see HPI, change in skin color, erythema. Neurological/Psychological: Reports: no symptoms. Hematologic/Endocrine: Reports: no symptoms. Exam & Diagnostic Data Last 24 Hrs of Vital Signs/I&O Vital Signs Date Time Temp Pulse Resp B/P B/P Pulse O2 O2 Flow FiO2 Mean Ox Delivery Rate 07/25 0200 Room Air 07/25 0159 99.0 89 17 117/69 99 Room Air 07/25 0158 99.0 07/25 0156 99.0 07/24 2225 100.9 100 22 137/80 97 Intake & Output 07/25 0800 07/25 0000 07/24 1600 Intake Total 1100 Output Total Balance 1100 Intake, IV 1100 Physical Exam General Appearance Alert, Oriented X3, Cooperative, No Acute Distress Skin Noted approximately 2x2cm erythemathous lesion in the anteromedial charles. Nonraised irregular borders. Skin Temp/Moisture Exam: Warm/Dry HEENT Atraumatic, PERRLA, EOMI Neck Supple Lymphatic Cervical nl Cardiovascular Regular Rate, Normal S1, Normal S2, No Murmurs Lungs Clear to Auscultation, Normal Air Movement Abdomen Normal Bowel Sounds, Soft, No Tenderness Neurological Normal Speech, Cranial Nerves 3-12 NL Extremities Normal Pulses, 2x2cm erythematous warm lesion on anteromedial charles Vascular Normal Pulses Body Front and Back (Adult) 1) Approximately 2x2 cm erythematous lesion that is tender to touch with irregular borders in the right anteromedial charles. Nonraised. Last 24 Hrs of Labs/Arthur: Laboratory Tests 07/25/18 0125: Lactic Acid Cancelled 07/24/18 2250: Anion Gap 10, Estimated GFR > 60, BUN/Creatinine Ratio 13.3, Glucose 112 H, Lactic Acid 1.2, Calcium 9.1, Total Bilirubin 0.4, AST 26, ALT 43, Alkaline Phosphatase 66, Total Protein 7.3, Albumin 4.2, Globulin 3.1, Albumin/Globulin Ratio 1.4, D-Dimer High Sensitivty 314 H, CBC w Diff NO MAN DIFF REQ, RBC 4.73, MCV 87.7, MCH 30.0, MCHC 34.2, RDW 13.1, MPV 8.7, Gran % 78.7 H, Lymphocytes % 12.8 L, Monocytes % 6.8, Eosinophils % 1.6, Basophils % 0.1, Absolute Granulocytes 7.6 H, Absolute Lymphocytes 1.2, Absolute Monocytes 0.7 H, Absolute Eosinophils 0.2, Absolute Basophils 0 Microbiology 07/25 0000 BLOOD: Blood Culture - RECD 07/24 2345 BLOOD: Blood Culture - RECD Assessment/Plan Assessment: Mr. Woodruff is a 32 y/o M with no significant PMH who comes to the ED c/o R leg swelling and pain. Patient states the symptoms started as swelling last . A noted color change was noted on the R lower charles, from white->red-> purple. He started feeling localized pain in the area with increasing swelling and warmth. He notes subjective fever and chills of same duration alongisde N/V of nonbloody vomitus once. He has also felt lightheaded and dizzy with retroorbital pain. He denies any recent URI, LOC, trauma, cuts or bruises to the area, prior similar episodes, sick contacts, animal/tick bites, recent travel. He does note loose bowel movements since the symptoms started alongside joint pain predominantly in the knees. ED labs and CXR were reviewed and found to be unremarkable. He is being admitted to [facility] for further management of: PROBLEM LIST #R LE cellulitis #R LE Cellulitis His presentation of increased swelling, fever/chills, and erythematous lesion on the anteromedial charles is concerning for cellulitis. BC were drawn. Strep is most likely pathogen. Will cover with Unasyn 3g q6 -Unasyn 3g q6 -Tylenol PO for fever -F/u BC FULL CODE REG DIET DVT PPX sq lovenox As Ranked By This Provider Problem List: 1. Cellulitis of right lower extremity Core Measures/Misc (08/09) Acute Coronary Syndrome ACS Diagnosis: No Congestive Heart Failure Congestive Heart Failure Diagnosis No Cerebrovascular Accident CVA/TIA Diagnosis: No VTE (View Protocol) VTE Risk Factors Other No Mechanical VTE Prophylaxis d/t N/A MechProphylax Ordered No VTE Pharm Prophylaxis d/t NA PharmProphylax ordered Sepsis (View protocol) Sepsis Present: No If YES complete Sepsis Event Note If YES complete Sepsis Event Note Kwame Darby MD 07/25/18 0152: Core Measures/Misc (08/09) Sepsis (View protocol) If YES complete Sepsis Event Note If YES complete Sepsis Event Note Resident Review Statement Resident Statement: examined this patient, discussed with planner intern, reviewed EMR data (avail) Other Findings: 32 yo M with no significant PMH presented to the ED for evaluation of painful right leg and swelling. The patient states that his symptoms started night when he started feeling pain in his right leg but he ignored it at the time. The next morning his girlfriend mentioned that the leg looks red and swollen. He did started experiencing significant progressively worsening pain as well. He denies taking any medications for the pain. As his symptoms were not improving he came in for further evaluation. ROS: significant for fevers, chills and RLE pain/swelling Physical Exam: General Appearance: well developed/nourished, alert, awake, mild distress Head: atraumatic, normal appearance Eyes: bilateral: normal appearance and PERRLA. Ears, Nose, Throat, Mouth: hearing and speech normal, no sinus tenderness Respiratory: normal breath sounds, chest non-tender, no respiratory distress, lungs clear Cardiovascular: regular rate/rhythm, normal S1 and S2 Gastrointestinal: soft, non tender Extremities: erythema, tenderness, warm to touch RLE, normal appearance of LLE Skin: normal inspection In the ED the patient was found to be febrile to 100.9 and tachycardic to 100. Assessment: 1. Right Lower Extremity Cellulitis Plan: * Admit patient to general medicine floor. * Start Cefazolin 1g q8. * Follow up blood cultures * Tylenol PO for fever. * Diet: Regular * DVT Prophylaxis: SC Lovenox * Code: Full Code [facility],Poonam 07/25/18 0253: Core Measures/Misc (08/09) Sepsis (View protocol) If YES complete Sepsis Event Note If YES complete Sepsis Event Note Attending MD Review Statement Attending Statement Attending MD Statement: examined this patient, discuss w/resident/PA/READING INTERVENTIONIST, agreed w/resident/PA/READING INTERVENTIONIST, reviewed EMR data (avail), discussed with nursing, discussed with case mgmt, amended to note Attending Assessment/Plan: Patient's presentation and physical examination are consistent with right lower extremity cellulitis. He arrived here afebrile but fortunately hemodynamically stable. Will admit the patient to the inpatient medical service for intravenous antibiotic therapy given the rapid progression of the cellulitis. AV improves over the next 24-48 hours he may be transitioned to oral antibiotic therapy to complete a total of 10 days of treatment. Dopplers of the lower extremity may be obtained in about to rule out underlying deep vein thrombosis in the extremity as well. He is stable from a respiratory standpoint and may be continued on his home bronchodilator regimen while here in the hospital.
[2018-07-25 04:12] VITALS: BP 128/62
--- NOTE | 2018-07-25 11:09 | ULTRASOUND REPORT ---
EXAMINATION: US TRIPLEX LOWER EXTREMITY, RIGHT CLINICAL INFORMATION: This is a 32-year-old male with right leg pain and discoloration. Swelling and edema. Possible deep vein thrombosis. COMPARISON: None TECHNIQUE: Color-flow triplex imaging with spectral analysis and compression Doppler were performed on the lower extremity. FINDINGS: Respiratory variation, normal compression and augmented flow are noted throughout the lower extremity. The visualized common femoral vein, superficial femoral vein, profunda femoral vein, popliteal vein and midcalf peroneal and posterior tibial venous segments show no evidence of deep venous thrombosis. There is no Diaz's cyst. Incidental note is made of mildly enlarged lymph nodes within the groin, measuring 2.8 and 5.0 cm respectively. These are nonspecific. If clinically suspicious a repeat ultrasound to demonstrate resolution is recommended. IMPRESSION: No evidence of deep venous thrombosis involving the lower extremity.
--- NOTE | 2018-07-25 13:35 | PN- Gen Med ---
Assessment/Plan Medical Assessment: This patient is a 32 year old male without a significant past medical history who was admitted to the hospital on 07/25/18 for right leg cellulitis associated with low grade fevers, normal WBC count, nausea and vomiting. The patient is currently felling better on Amp/sulbactam. Problem List: 1. Cellulitis of right lower extremity Plan: Cellulitis right lower extremity - Continue Unasyn 3gm - Follow cultures - LE Dopperls negative for DVT - Check CBC in am - Symptomatic therapy Discharge Plan Discharge Disposition: home Subjective Follow-up For: RLE Cellulitis Complaints: no complaints Subjective: This patient is a 32 year old male without a significant past medical history who was admitted to the hospital on 07/25/18 for right leg cellulitis associated with low grade fevers, normal WBC count, nausea and vomiting. The patient is currently feeling better on Amp/sulbactam with a normal temp and WBC count. Lower extremity ultrasounds are negative for DVT. Review of Systems Constitutional: Reports: see HPI. Comments: 12 point review of systems negative except for what was identified in the HPI Objective Last 24 Hrs of Vital Signs/I&O Vital Signs Date Time Temp Pulse Resp B/P B/P Pulse O2 O2 Flow FiO2 Mean Ox Delivery Rate 07/25 0412 98.0 74 20 128/62 95 Room Air 07/25 0326 99.7 87 20 114/68 96 Room Air 07/25 0200 Room Air / 0159 99.0 89 17 117/69 99 Room Air / 0158 99.0 / 0156 99.0 / 2225 100.9 100 22 137/80 97 Intake & Output 07/25 1600 07/25 0800 07/25 0000 Intake Total 1320 Output Total Balance 1320 Intake, IV 1200 Intake, Oral 120 Patient 340 lb Weight Weight Reported by Patient Measurement Method Physical Exam General Appearance: Alert, Oriented X3, Cooperative, No Acute Distress Skin: right lower extremity erythema and minimal tenderness Skin Temp/Moisture Exam: Warm/Dry Sepsis Skin Exam (color): Normal for Ethnicity HEENT: Atraumatic, PERRLA, EOMI Neck: Supple, No JVD, No thryomegaly Lymphatic: Axillary nl, Cervical nl Cardiovascular: Regular Rate, Normal S1, Normal S2 Lungs: Clear to Auscultation, Normal Air Movement Abdomen: Normal Bowel Sounds, Soft, No Tenderness, No Hepatospenomegaly, No Masses Neurological: Normal Gait, Normal Speech, Strength at 5/5 X4 Ext Extremities: No Clubbing, No Cyanosis, No Edema, Normal Pulses Sepsis Peripheral Pulse Location: Dorsalis Pedis Sepsis Peripheral Pulse Exam: Normal Sepsis Cap Refill Exam: <2 Sec Current Medications: Current Medications Sig/Raciel Start time Last Medication Dose Route Stop Time Status Admin Acetaminophen 0 .STK-MED ONE 07/25 0157 DC PO Acetaminophen 650 MG Q6P PRN 07/25 0130 AC 07/25 PO 0156 Acetaminophen 1,000 MG ONCE ONE 07/25 0045 DC N/A 1 UNIT IV 07/25 0059 Ampicillin Sodium/ 3,000 MG Q6 07/25 0600 AC 07/25 Sulbactam Sodium IV 1150 Sodium Chloride 100 ML Cefazolin Sodium 1,000 MG IQ8 07/25 0800 CAN IV Doxycycline Hyclate 100 MG ONCE ONE 07/25 0030 DC 07/25 Sodium Chloride 100 ML IV 07/25 0135 0047 Enoxaparin Sodium 40 MG DAILY 07/25 0900 AC 07/25 SC 0911 Ibuprofen 600 MG Q6P PRN 07/25 0130 AC PO Sodium Chloride 1,000 ML BOLUS ONE 07/24 2345 DC 07/25 IV 07/25 0044 0003 Last 24 Hrs of Labs/Mics: Laboratory Tests 07/25/18 0125: Lactic Acid Cancelled 07/24/18 2250: Anion Gap 10, Estimated GFR > 60, BUN/Creatinine Ratio 13.3, Glucose 112 H, Lactic Acid 1.2, Calcium 9.1, Total Bilirubin 0.4, AST 26, ALT 43, Alkaline Phosphatase 66, Total Protein 7.3, Albumin 4.2, Globulin 3.1, Albumin/Globulin Ratio 1.4, D-Dimer High Sensitivty 314 H, CBC w Diff NO MAN DIFF REQ, RBC 4.73, MCV 87.7, MCH 30.0, MCHC 34.2, RDW 13.1, MPV 8.7, Gran % 78.7 H, Lymphocytes % 12.8 L, Monocytes % 6.8, Eosinophils % 1.6, Basophils % 0.1, Absolute Granulocytes 7.6 H, Absolute Lymphocytes 1.2, Absolute Monocytes 0.7 H, Absolute Eosinophils 0.2, Absolute Basophils 0 Microbiology 07/25 0000 BLOOD: Blood Culture - RECD 07/24 2345 BLOOD: Blood Culture - RECD
[2018-07-25 14:36] VITALS: BP 129/66
[2018-07-25 21:35] VITALS: BP 148/81
[2018-07-26 07:29] VITALS: BP 134/78
[2018-07-26 07:43] LABS: ABSOLUTE BASOPHIL COUNT 0 /CUMM (0.0-0.2); ABSOLUTE EOSINOPHIL COUNT 0.4 /CUMM (0.0-0.7); ABSOLUTE LYMPH COUNT 1.7 /CUMM (1.2-3.4); ABSOLUTE MONOCYTE COUNT 0.6 /CUMM (0.10-0.60); BASOPHIL % 0.3 % (0.0-2.0); GRANULOCYTE % 59.6 % (42.2-75.2); MEAN CORPUSCULAR HGB 29.8 PG (27.0-31.0); MEAN CORPUSCULAR HGB CONC 33.2 G/DL (33.0-37.0); MEAN CORPUSCULAR VOLUME 89.9 FL (80.0-94.0); MEAN PLATELET VOLUME 9.1 FL (7.4-10.4); PLATELET COUNT 188 /CUMM (130-400); RBC DISTRIBUTION WIDTH 13.1 % (11.5-14.5); RED BLOOD CELL CT 4.45 /CUMM (4.70-6.10); WHITE BLOOD CELL COUNT 6.7 /CUMM (4.8-10.8)
--- NOTE | 2018-07-26 10:12 | PN- Housestaff ---
Guido Porras 07/26/18 1012: Subjective Follow-up For: R LE Cellulitis Subjective: Pt seen and examined this am. He remains afebrile, breathing comfortably on room air. He does note increased pain in R LE. Erythema and swelling has increased in size compared to admission where it was just anteromedial. Swelling noted posteriorly, and more proximally. No leukocytosis. He offers no other acute complains. Review of Systems Constitutional: Reports: see HPI. Objective Last 24 Hrs of Vital Signs/I&O Vital Signs Date Time Temp Pulse Resp B/P B/P Pulse O2 O2 Flow FiO2 Mean Ox Delivery Rate 07/26 0729 97.8 68 18 134/78 97 07/25 2135 98.4 80 18 148/81 94 Room Air 07/25 1436 98.2 70 16 129/66 98 Room Air Intake & Output 07/26 1600 07/26 0800 07/26 0000 Intake Total 240 360 Output Total Balance 240 360 Intake, IV 120 Intake, Oral 240 240 Physical Exam General Appearance: Alert, Oriented X3, Cooperative, No Acute Distress Skin: Noted increased erythema and swelling more proximal and posterior compared to before. HEENT: Atraumatic Neck: Supple Cardiovascular: Regular Rate, Normal S1, Normal S2, No Murmurs Lungs: Clear to Auscultation, Normal Air Movement Abdomen: Normal Bowel Sounds, Soft, No Tenderness Neurological: Normal Speech Extremities: Increased swelling and tenderness on R LE. Noted erythema proximal to the knee and posteriorly Current Medications: Current Medications Sig/Raciel Start time Last Medication Dose Route Stop Time Status Admin Acetaminophen 650 MG Q6P PRN 07/25 0130 AC 07/25 PO 1717 Ampicillin Sodium/ 3,000 MG Q6 07/25 0600 07/26 Sulbactam Sodium IV 0524 Sodium Chloride 100 ML Enoxaparin Sodium 40 MG DAILY 07/25 09 07/26 SC 0801 Ibuprofen 600 MG Q6P PRN 07/25 0130 AC 07/25 PO 2314 Last 24 Hrs of Lab/Arthur Results Last 24 Hrs of Labs/Mics: Laboratory Tests 07/26/18 0630: Anion Gap 8, Estimated GFR > 60, BUN/Creatinine Ratio 12.9, CBC w Diff NO MAN DIFF REQ, RBC 4.45 L, MCV 89.9, MCH 29.8, MCHC 33.2, RDW 13.1, MPV 9.1, Gran % 59.6, Lymphocytes % 25.5, Monocytes % 8.6, Eosinophils % 6.0 H, Basophils % 0.3 , Absolute Granulocytes 4.0, Absolute Lymphocytes 1.7, Absolute Monocytes 0.6, Absolute Eosinophils 0.4, Absolute Basophils 0 Assessment/Plan Assessment: Mr. Cowan is a 32 y/o M with no significant PMH who comes to the ED c/o R leg swelling and pain. Patient states the symptoms started as swelling last . A noted color change was noted on the R lower charles, from white->red-> purple. He started feeling localized pain in the area with increasing swelling and warmth. Noted subjective fever and chills of same duration alongisde N/V of nonbloody vomitus once. He has also felt lightheaded and dizzy with retroorbital pain. He denied any recent URI, LOC, trauma, cuts or bruises to the area, prior similar episodes, sick contacts, animal/tick bites, recent travel. He does note loose bowel movements since the symptoms started alongside joint pain predominantly in the knees. He was admitted to the GEN MED floor for the following issue: PROBLEM LIST: #R LE Cellulitis #Morbid obesity #R LE Cellulitis On presentation, Pt had a 2x2 cm anteromedial charles erythemathous, swollen and tender area. She was started on Unasyn 3g q6. Noted worsening of erythematous and swelling, now seen posteriorly and more proximal in the R LE. Will start on vancomycin. He remains afebrile. No leukocytosis. -On Unasyn (day 2) -now started on vancomycin (day one) FULL CODE REG DIET DVT PPX SQ Lovenox Problem List: 1. Cellulitis of right lower extremity Pain Ratin Pain Location: R LE Pain Goal: Pain 4 or less Pain Plan: As indicated Tomorrow's Labs & Rationales: Ramon Arias MD 07/26/18 1126: Subjective Review of Systems Constitutional: Reports: see HPI. Objective Last 24 Hrs of Vital Signs/I&O Vital Signs Date Time Temp Pulse Resp B/P B/P Pulse O2 O2 Flow FiO2 Mean Ox Delivery Rate 07/26 0729 97.8 68 18 134/78 97 07/25 2135 98.4 80 18 148/81 94 Room Air 07/25 1436 98.2 70 16 129/66 98 Room Air Intake & Output 07/26 1600 07/26 0800 07/26 0000 Intake Total 240 360 Output Total Balance 240 360 Intake, IV 120 Intake, Oral 240 240 Physical Exam General Appearance: Alert, Oriented X3, Cooperative, No Acute Distress Skin: Noted increased erythema and swelling more proximal and posterior compared to before. HEENT: Atraumatic, PERRLA, EOMI Neck: Supple, No JVD Cardiovascular: Regular Rate, Normal S1, Normal S2, No Murmurs Lungs: Clear to Auscultation, Normal Air Movement Abdomen: Normal Bowel Sounds, Soft, No Tenderness, No Hepatospenomegaly Neurological: Normal Gait, Normal Speech Extremities: Increased swelling and tenderness on R LE. Noted erythema proximal to the knee and posteriorly Current Medications: Current Medications Sig/Raciel Start time Last Medication Dose Route Stop Time Status Admin Acetaminophen 650 MG Q6P PRN 07/25 0130 AC 07/25 PO 1717 Ampicillin Sodium/ 3,000 MG Q6 07/25 0600 AC 07/26 Sulbactam Sodium IV 0524 Sodium Chloride 100 ML Enoxaparin Sodium 40 MG DAILY 07/25 09 AC 07/26 SC 0801 Ibuprofen 600 MG Q6P PRN 07/25 0130 AC 07/25 PO 2314 Last 24 Hrs of Lab/Arthur Results Last 24 Hrs of Labs/Mics: Laboratory Tests 07/26/18 0630: Anion Gap 8, Estimated GFR > 60, BUN/Creatinine Ratio 12.9, CBC w Diff NO MAN DIFF REQ, RBC 4.45 L, MCV 89.9, MCH 29.8, MCHC 33.2, RDW 13.1, MPV 9.1, Gran % 59.6, Lymphocytes % 25.5, Monocytes % 8.6, Eosinophils % 6.0 H, Basophils % 0.3 , Absolute Granulocytes 4.0, Absolute Lymphocytes 1.7, Absolute Monocytes 0.6, Absolute Eosinophils 0.4, Absolute Basophils 0 Attending MD Review Statement Attending Statement Attending MD Statement: examined this patient Attending Assessment/Plan: This patient is a 32 year old male without a significant past medical history who was admitted to the hospital on 07/25/18 for right leg cellulitis associated with low grade fevers, normal WBC count, nausea and vomiting. The patient is currently felling better on Amp/sulbactam however he has a new area of erythema, warmth and tenderness whcih could be a developing abscess. - Add Vamcomycin 1 gm IV Q12H - Continue Unasyn 3gm
[2018-07-26 14:06] VITALS: BP 145/79
[2018-07-26 22:32] VITALS: BP 132/72
--- NOTE | 2018-07-27 06:58 | PN- Housestaff ---
See Addendum Subjective Follow-up For: Right Lower Extremity Cellulitis Subjective: Pt seen and examined at bedside. Afebrile overnight with normal vital signs saturating on room air. Patient states his cellulitis seems to have migrated to the posterior aspect of his right calf that is tender to palpation and a 6/10 pain when he stands and walks and new since yesterday as per patient. Will follow up repeat superficial US. Otherwise, the area does not bother him unless it is provoked. Patient tolerating diet well with normal bowel/bladder movements. Review of Systems Constitutional: Denies: see HPI. Objective Last 24 Hrs of Vital Signs/I&O Vital Signs Date Time Temp Pulse Resp B/P B/P Pulse O2 O2 Flow FiO2 Mean Ox Delivery Rate 07/27 0722 97.9 60 20 127/71 94 07/26 2232 98.0 74 20 132/72 96 Room Air 07/26 1406 97.5 68 18 145/79 98 Room Air Intake & Output 07/27 1600 07/27 0800 07/27 0000 Intake Total 250 Output Total Balance 250 Intake, IV 10 Intake, Oral 240 Physical Exam General Appearance: Alert, Oriented X3, Cooperative Skin: Right lower extremity erythema and swelling with increased spread posteriorly, no significant warmth Skin Temp/Moisture Exam: Warm/Dry HEENT: EOMI, Mucous Membr. moist/pink Cardiovascular: Regular Rate, Normal S1, Normal S2 Lungs: Clear to Auscultation, Normal Air Movement Abdomen: Normal Bowel Sounds, Soft, No Tenderness Extremities: +2 edema in right lower extremity with underlying cellulitis Vascular: Normal Pulses, Pulses Symmetrical Current Medications: Current Medications Sig/Raciel Start time Last Medication Dose Route Stop Time Status Admin Acetaminophen 650 MG Q6P PRN 07/25 0130 AC 07/25 PO 1717 Ampicillin Sodium/ 3,000 MG Q6 07/25 0600 AC 07/27 Sulbactam Sodium IV 0657 Sodium Chloride 100 ML Enoxaparin Sodium 40 MG DAILY 07/25 09 AC 07/26 SC 0801 Ibuprofen 600 MG Q6P PRN 07/25 0130 AC 07/25 PO 2314 Vancomycin HCl 2,000 MG Q12H 07/26 1200 AC 07/27 Sodium Chloride 500 ML IV 0010 Last 24 Hrs of Lab/Arthur Results Last 24 Hrs of Labs/Mics: Laboratory Tests 07/27/18 0643: CBC w Diff Pending, WBC Pending, RBC Pending, Hgb Pending, Hct Pending, MCV Pending, MCH Pending, MCHC Pending, RDW Pending, Plt Count Pending, MPV Pending Assessment/Plan Assessment: Mr. Cowan is a 32 year old male without a significant past medical history who was admitted to the hospital on 07/25/18 for right leg cellulitis associated with low grade fevers, normal WBC count, nausea and vomiting. Patient improving on IV Unasyn day 3 with a normal temp and WBC count. Lower extremity ultrasounds are negative for DVT. Added Vancomycin due to spread of patients pain and erythema to the posterior calf. 07/27: Remains afebrile in past 24 hours. Monitoring for leukocytosis. Day 3 IV Unasyn and Day 2 Vancomycin for increasing posterior erythema. Follow up lower extremeity ultrasound for possible cyst/fluctulance/abscess in the posterior compartment of the right leg that is new since admission. PROBLEM LIST: 1. R LE Cellulitis PLAN: * IV Unasyn Day 3, Day 2 Vancomycin * Follow up repeat superficial US * Continue to monitor for fevers, leukocytosis * Appreciate ID consultation * Pain control by Ibuprofen, Tylenol Code Status: Full Code DVT PPx: Lovenox Diet: Regular Problem List: 1. Cellulitis of right lower extremity Pain Ratin Pain Location: Right lower extremity Pain Goal: Pain 4 or less Pain Plan: as per pain pathway Tomorrow's Labs & Rationales: cbc
[2018-07-27 07:22] VITALS: BP 127/71
[2018-07-27 08:05] LABS: ABSOLUTE BASOPHIL COUNT 0 /CUMM (0.0-0.2); ABSOLUTE EOSINOPHIL COUNT 0.4 /CUMM (0.0-0.7); ABSOLUTE GRANULOCYTE CT 4.4 /CUMM (1.4-6.5); ABSOLUTE LYMPH COUNT 1.8 /CUMM (1.2-3.4); ABSOLUTE MONOCYTE COUNT 0.6 /CUMM (0.10-0.60); BASOPHIL % 0.3 % (0.0-2.0); EOSINOPHIL % 5.3 % (0-5); GRANULOCYTE % 60.9 % (42.2-75.2); HEMATOCRIT 37.5 % (42-52); MEAN CORPUSCULAR HGB 29.8 PG (27.0-31.0); MEAN CORPUSCULAR HGB CONC 33.7 G/DL (33.0-37.0); MEAN CORPUSCULAR VOLUME 88.6 FL (80.0-94.0); MEAN PLATELET VOLUME 9.1 FL (7.4-10.4); PLATELET COUNT 207 /CUMM (130-400); RBC DISTRIBUTION WIDTH 13.4 % (11.5-14.5); RED BLOOD CELL CT 4.23 /CUMM (4.70-6.10); WHITE BLOOD CELL COUNT 7.2 /CUMM (4.8-10.8)
[2018-07-27 14:59] VITALS: BP 149/81
--- NOTE | 2018-07-27 17:49 | ULTRASOUND REPORT ---
EXAMINATION: US SUPERFICIAL IMAGING, EXTREMITY CLINICAL INFORMATION: New fluctuant erythema in posterior aspect of right calf COMPARISON: Right lower extremity DVT study 07/25/2018 TECHNIQUE: Grayscale and color Doppler imaging was obtained in the posterior mid right calf (area of redness/swelling). FINDINGS: No focal mass or focal fluid collection identified. Mild subcutaneous edema present. IMPRESSION: No ultrasound evidence of abscess or focal fluid collection in the posterior right calf.
[2018-07-27 21:32] VITALS: BP 132/76
[2018-07-28 06:28] VITALS: BP 152/90
--- NOTE | 2018-07-28 07:22 | PN- Housestaff ---
See Addendum Subjective Follow-up For: Right Lower Extremity Cellulits Subjective: Pt seen and examined at bedside this morning. Afebrile overnight. Denies pain unless his lower extremity is touched. No fevers, chills, n/v reported. Review of Systems Constitutional: Denies: see HPI. Objective Last 24 Hrs of Vital Signs/I&O Vital Signs Date Time Temp Pulse Resp B/P B/P Pulse O2 O2 Flow FiO2 Mean Ox Delivery Rate 07/28 628 96.3 62 18 152/90 96 Room Air 07/27 2132 97.9 67 18 132/76 99 Room Air 07/27 1459 98.1 73 20 149/81 98 Room Air Intake & Output 07/28 0800 07/28 0000 07/27 1600 Intake Total 324 903 8132 Output Total Balance 580 976 8770 Intake, IV 700 110 600 Intake, Oral 395 090 8761 Physical Exam General Appearance: Alert, Oriented X3, Cooperative, No Acute Distress Skin: right lower extremity erythema improving HEENT: EOMI, Mucous Membr. moist/pink Cardiovascular: Regular Rate, Normal S1, Normal S2 Lungs: Clear to Auscultation, Normal Air Movement Abdomen: Normal Bowel Sounds, Soft, No Tenderness Extremities: Trace edema in bilateral lower extremities R>L Vascular: Normal Pulses Current Medications: Current Medications Sig/Raciel Start time Last Medication Dose Route Stop Time Status Admin Acetaminophen 650 MG Q6P PRN 07/25 0130 AC 07/25 PO 1717 Ampicillin Sodium/ 3,000 MG Q6 07/25 0600 AC 07/28 Sulbactam Sodium IV 0541 Sodium Chloride 100 ML Enoxaparin Sodium 40 MG DAILY 07/25 09 AC 07/28 SC 0756 Ibuprofen 600 MG Q6P PRN 07/25 0130 AC 07/25 PO 2314 Patient Medication 1 ED ONE ONE 07/27 194 [facility] Teaching ED 07/27 194 Vancomycin HCl 2,000 MG Q12H 07/26 1200 AC 07/27 Sodium Chloride 500 ML IV 2352 Last 24 Hrs of Lab/Arthur Results Last 24 Hrs of Labs/Mics: Laboratory Tests 07/28/18 0726: CBC w Diff Pending, WBC Pending, RBC Pending, Hgb Pending, Hct Pending, MCV Pending, MCH Pending, MCHC Pending, RDW Pending, Plt Count Pending, MPV Pending Assessment/Plan Assessment: Mr. Cowan is a 32 year old male without a significant past medical history who was admitted to the hospital on 07/25/18 for right leg cellulitis associated with low grade fevers, normal WBC count, nausea and vomiting. Patient improving on IV Unasyn day 3 with a normal temp and WBC count. Lower extremity ultrasounds are negative for DVT. Added Vancomycin due to spread of patients pain and erythema to the posterior calf. 07/28: Remains afebrile in past 24 hours. M Day 4 IV Unasyn and Day 3 Vancomycin for increasing posterior erythema. Improved area of erythema in right lower extremity. Repeat US of lower extremity negative for any abscess or focal fluid collection. Will discharge patient on oral antibiotics today - Bactrim + Augmentin to complete a 10 day course. PROBLEM LIST: 1. R LE Cellulitis PLAN: * IV Unasyn Day 4, Day 3 Vancomycin; discharge on PO antibiotics * Continue to monitor for fevers, leukocytosis * Appreciate ID consultation * Pain control by Ibuprofen, Tylenol Code Status: Full Code DVT PPx: Lovenox Diet: Regular Problem List: 1. Cellulitis of right lower extremity Pain Ratin Pain Location: Denies pain Pain Goal: Remain pain free Pain Plan: as per pain pathway Tomorrow's Labs & Rationales: cbc
[2018-07-28 08:45] LABS: ABSOLUTE BASOPHIL COUNT 0 /CUMM (0.0-0.2); ABSOLUTE EOSINOPHIL COUNT 0.3 /CUMM (0.0-0.7); ABSOLUTE GRANULOCYTE CT 5.9 /CUMM (1.4-6.5); ABSOLUTE LYMPH COUNT 1.6 /CUMM (1.2-3.4); ABSOLUTE MONOCYTE COUNT 0.4 /CUMM (0.10-0.60); BASOPHIL % 0.2 % (0.0-2.0); GRANULOCYTE % 71.4 % (42.2-75.2); HEMATOCRIT 38.9 % (42-52); MEAN CORPUSCULAR HGB 29.9 PG (27.0-31.0); MEAN CORPUSCULAR HGB CONC 33.7 G/DL (33.0-37.0); MEAN CORPUSCULAR VOLUME 88.8 FL (80.0-94.0); MEAN PLATELET VOLUME 9.6 FL (7.4-10.4); PLATELET COUNT 268 /CUMM (130-400); RBC DISTRIBUTION WIDTH 13.2 % (11.5-14.5); RED BLOOD CELL CT 4.38 /CUMM (4.70-6.10); WHITE BLOOD CELL COUNT 8.2 /CUMM (4.8-10.8)
--- NOTE | 2018-07-28 09:16 | Patient Discharge Instructions ---
Discharge Instructions General Discharge Information You were seen/treated for: Right lower extremity cellulitis Special Instructions: Please follow up with PCP at the clinic within 1 week of discharge. Please continue oral antibiotics as prescribed: Augmentin + Bactrim for 7 more days. Take each medication twice a day with food please. Return to hospital with worsening fevers, chills, pain, nausea and vomiting. Acute Coronary Syndrome Inclusion Criteria At DC or during hospital stay patient has or had the following: ACS DIAGNOSIS No Discharge Core Measures Meds if any: Prescribed or Continued at Discharge Meds if any: NOT Prescribed or Continued at Discharge Congestive Heart Failure Inclusion Criteria At DC or during hospital stay patient has or had the following: CHF DIAGNOSIS No Discharge Core Measures Meds if any: Prescribed or Continued at Discharge Meds if any: NOT Prescribed or Continued at Discharge Cerebrovascular accident Inclusion Criteria At DC or during hospital stay patient has or had the following: CVA/TIA Diagnosis No Discharge Core Measures Meds if any: Prescribed or Continued at Discharge Meds if any: NOT Prescribed or Continued at Discharge Venous thromboembolism Inclusion Criteria VTE Diagnosis No VTE Type NONE VTE Confirmed by (Test) NONE Discharge Core Measures - Per Current guidelines, there needs to be overlap - treatment for the first 5 days of Warfarin therapy. - If discharged on Warfarin prior to 5 days of - overlap therapy, the patient will need to be - assessed for post discharge needs including - *Post discharge parental anticoagulation - *Warfarin and/or parental anticoagulation education - *Follow up date to check INR post discharge At least 5 days overlap therapy as Inpatient No Meds if any: Prescribed or Continued at Discharge Note: Overlap Therapy is Warfarin and Anticoagulant Meds if any: NOT Prescribed or Continued at Discharge
[2018-07-28] MEDS ORDERED: BACTRIM DS TAB1 EACH PO ×2 (09:21→10:45)
[2018-07-28] MEDS ORDERED: AUGMENTIN 875-1 EACH PO ×2 (09:21→10:45)
--- NOTE | 2018-07-28 10:01 | Discharge Summary ---
Visit Information Visit Dates Admission Date: 07/25/18 Discharge Date: 07/28/18 Hospital Course Course Attending Physician: Chet Theodore MD Primary Care Physician: Cb LUU,Khris Mason Hospital Course: HOSPITAL COURSE: Mr. Cowan is a 32 year old male with no significant PMH who came to ED for cheif complaint of right leg swelling and pain. Patient states the symptoms started as swelling 3 days prior to admission. A noted color change was noted on the R lower charles, from white->red->purple. He started feeling localized pain in the area with increasing swelling and warmth. He noted subjective fever and chills of same duration alongisde N/V of nonbloody vomitus once. He has also felt lightheaded and dizzy with retroorbital pain. He denied any recent URI, LOC, trauma, cuts or bruises to the area, prior similar episodes, sick contacts, animal/tick bites, recent travel. He does note loose bowel movements since the symptoms started alongside joint pain predominantly in the knees. Patient is an everyday smoker of 1/2 PPD for 15-20y, occasional alcohol drinker. Denies drug use. EMERGENCY DEPARTMENT: Vital Signs: 100.9, 100, 22, 137/80, 97% room air Given Lovenox, Unasyn X 1, Tylenol and Ibuprofen Blood cultures were taken IMAGIN/2: US TRIPLEX LOWER EXTREMITY, RIGHT --No evidence of deep venous thrombosis involving the lower extremity. 07/27 US - US-SUPERFICIAL IMAGING EXTREMITY --No ultrasound evidence of abscess or focal fluid collection in the posterior right calf. GENERAL MEDICINE ADMISISON: Patient admitted to general medicine floor for treatment, evaluation and monitoring of the following: PROBLEM LIST: 1. Right Lower Extremity Cellulitis CELLULITIS patient is a 32 year old male without a significant past medical history who was admitted to the hospital on 07/25/18 for right leg cellulitis associated with low grade fevers, normal WBC count, nausea and vomiting. The patient improved significantly on Amp/sulbactam with a normal temp and WBC count. Lower extremity ultrasounds werer negative for DVT. After 2 days of IV unasyn, patient had a new posterior compartment erythema that was not present since admission. This was concerning for an abscess. Vancomycin was started. Repeat US superficial was done and ruled out any focal abscess or fluid collection. Blood cultures remained negative. Dr. Miranda (medicine+Infectious disease) had seen patient. He remained afebrile and discharged on PO Bactrim + Augmentin to complete a 10 day course of antitbitoics. Pain was controlled by ibuprofen and tylenol. Advised to follow up with his PCP within 1 week. Told to return to ED if worsening pain, fevers, chills. Code Status: Full Code DVT PPx: Lovenox Diet: Regular Allergies: Uncoded Allergies: RITALIN(GENERIC) (HIVES 07/24/18) Disposition Summary Disposition Principal Diagnosis: Right Lower Extremity Cellulitis Additional Diagnosis: Cellulitis Discharge Disposition: home or self care Discharge Instructions General Discharge Information Code Status: Full Code Patient's Diet: Regular Patient's Activity: As tolerated Follow-Up Instructions/Appts: Follow up with PCP within 1-2 weeks of discharge. Continue oral antibiotics Bactrim + Augmentin as prescribed. Medications at Discharge Discharge Medications: Start taking the following new medications: Amoxicillin/Potassium Clav (Augmentin 875-125 Tablet) 875 MG-125 MG TABLET 1 Tablet ORAL TWICE DAILY Qty = 14 No Refills Comments: NOT GIVEN IN HOSPITAL Sulfamethoxazole/Trimethoprim (Bactrim Ds Tablet) 800 MG-160 MG TABLET 1 Tablet ORAL TWICE DAILY Qty = 14 No Refills Instructions: Please complete full course of antibiotics. Comments: NOT GIVEN IN HOSPITAL Copies To: Cb LUU,Khris Mason Attending MD Review Statement Documenting Attending: Chet Theodore MD Other Findings: Agree with the above summary of care and plan upon discharge. Significant improvement in cellulitis since Vanco was added. Will need MRSA coverage as OP and will discharge on dual antibiotic therapy (Bactrim DS/Augmentin). Follow-up with PCP in 1 week (Dr. Vivar).
== END 2018-07-28 13:30 | DRG 383 ==
LOC: ERH 22:14 → 2NB 07-25 01:03 → ERHI 07-25 01:03 → ENRESERV 07-25 03:15 → 2NB 07-25 03:33 → ENPENDDIS 07-28 10:46 → 2NB 07-28 13:30
PROVIDERS: Emergency Medicine; Internal Medicine; Physical Medicine & Rehabilitation Pain Medicine; Student in an Organized Health Care Education/Training Program
DX: L03.115 Cellulitis of right lower limb (principal); E66.01 Morbid (severe) obesity due to excess calories; Z68.43 Body mass index [BMI] 50.0-59.9, adult; Z88.8 Allergy status to other drugs, medicaments and biological substances
CPT/HCPCS: 2NBSP; 36592; 76881; 82436; 87040; 96374; J0690; J1650; J3370; J7040